=== PATIENT | female | born 1965 | race Caucasian/White ===

== ENCOUNTER 2018-09-26 11:28 | Emergency (ER) | payer BC, OTHER ==
[2018-09-26 11:50] VITALS: BP 119/79; PULSE 99; TEMP 98.3; BMI 33.6
[2018-09-26] MEDS ORDERED: KETOROLAC TROMETHAMINE 60 MG/2 ML VIAL IM ONE (12:56)
--- NOTE | 2018-09-26 12:56 | PDOC ---
History of Present Illness - General Chief Complaint: Back Pain Stated Complaint: BACK PAIN Time Seen by Provider: 09/26/18 12:29 - History of Present Illness Initial Comments: 09/26/18 12:52 52-year-old female with a past medical history significant for depression and hypertension presents for evaluation of lower back pain without radicular symptoms 2 days. She denies systemic symptoms. No loss of bowel or bladder function. No dysuria. Past History - Past Medical History Allergies/Adverse Reactions: Allergies Allergy/AdvReac Type Severity Reaction Status Date / Time No Known Allergies Allergy Verified 09/26/18 11:46 Home Medications: Ambulatory Orders Cyclobenzaprine HCl [Flexeril 10 mg] 10 mg PO HS PRN #10 tablet 09/26/18 - Suicide/Smoking/Psychosocial Hx Smoking History: Never smoked Hx Alcohol Use: No Drug/Substance Use Hx: No Review of Systems - Review of Systems Constitutional: No: Fever : No: Dysuria, Hematuria Musculoskeletal: Yes: Back Pain *Physical Exam - Vital Signs Last Vital Signs Temp Pulse Resp BP Pulse Ox 98.3 F 99 H 20 119/79 96 09/26/18 11:46 09/26/18 11:46 09/26/18 11:46 09/26/18 11:46 09/26/18 11:46 - Physical Exam Comments: 09/26/18 12:52 Lumbar spine skin color and temperature are normal. There is no midline tenderness. There is moderate paralumbar musculature spasm and tenderness. No CVA tenderness. 5 out of 5 strength in bilateral lower extremities without gross sensorimotor deficits. Negative straight leg raise test bilaterally. Thighs and calves are soft and nontender. She is neurovascularly intact Moderate Sedation - Procedure Monitoring Vital Signs: Procedure Monitoring Vital Signs Temperature 98.3 F 09/26/18 11:46 Pulse Rate 99 H 09/26/18 11:46 Respiratory Rate 20 09/26/18 11:46 Blood Pressure 119/79 09/26/18 11:46 O2 Sat by Pulse Oximetry (%) 96 09/26/18 11:46 ED Treatment Course - RADIOLOGY Radiology Studies Ordered: Category Date Time Status SPINE-LUMBAR ONLY [RAD] Stat Radiology 09/26/18 12:38 Taken Medical Decision Making - Medical Decision Making 09/26/18 12:53 Mild straightening of the lumbar lordosis and arthritic changes about the lumbar spine no indication of destructive process or fracture *DC/Admit/Observation/Transfer Diagnosis at time of Disposition: Lumbar strain - Discharge Dispostion Disposition: HOME Condition at time of disposition: Stable Decision to Admit order: No - Referrals Referrals: Domenica Martinez [Primary Care Provider] - Rosendo Patel MD [Staff Physician] - - Patient Instructions Printed Discharge Instructions: Low Back Pain, DI for Low Back Pain Additional Instructions: Return to the emergency room should symptoms worsen or go unresolved. Please follow-up with orthopedic spine surgery in 1-2 days for further evaluation and treatment options. Because of your hypertension medication, showing take Tylenol in addition to your regular medication. I did give you a muscle relaxer which is one tablet before bedtime. Will make you sleepy. - Post Discharge Activity
[2018-09-26] MEDS ORDERED: KETOROLAC TROMETHAMINE 60 MG/2 ML VIAL ONE (13:07)
== END 2018-09-26 13:15 | disposition home or self-care (01) ==
LOC: JERFT 11:28
PROC: 3E0233Z Introduction of Anti-inflammatory into Muscle, Percutaneous Approach (ICD-10-PCS; principal; 2018-09-26)
DX: S39.012A Strain of muscle, fascia and tendon of lower back, initial encounter (principal); X58.XXXA Exposure to other specified factors, initial encounter; Y93.89 Activity, other specified; Y92.89 Other specified places as the place of occurrence of the external cause; Y99.8 Other external cause status; I10 Essential (primary) hypertension; F32.9 Major depressive disorder, single episode, unspecified
CPT/HCPCS: 72100-TC-FY; 99281-25